=== PATIENT | male | born 1985 | race African-American/Black ===

== ENCOUNTER 2016-10-10 15:30 | Emergency (ER) | payer MEDICAID ==
[2016-10-10 16:04] VITALS: BP 125/74; PULSE 86; RESP 12; TEMP 97.9; O2SAT 95
[2016-10-10] MEDS ORDERED: IBUPROFEN 200 MG TAB PO ONE (16:34)
--- NOTE | 2016-10-10 16:36 | EDPHY ---
H & P Time Seen by Provider: 10/10/16 16:34 HPI/ROS: HPI: 31-year-old male presents to emergency department with chief concern left 4th toe pain and swelling.. 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 Has been doing this for 3 months. Denies trauma. Denies fever, chills, myalgias, other joint pain or swelling, nausea, vomiting, tingling. Past medical history includes schizoaffective disorder and chronic back pain. He is a patient at [facility]. ROS:10 point review of systems is negative other than as stated in HPI Social History: In [employer] Smoking Status: Former smoker Physical Exam: Vital signs stable, reviewed by me General: Awake, alert, calm, cooperative. No acute distress. Head: Normalocephalic. Atraumatic. EENT: PERRLA. EOMI. Neck: Supple, nontender. No midline tenderness, full ROM. Respiratory: Breathing unlabored. CV: Chest nontender, atraumatic. Distal pulses 2+. Brisk cap refill all extremities. GI: Deferred Neuro: Alert. Oriented x 3. Sensation intact all extremities. Skin: Skin warm, dry, intact. Mild swelling of the left 4th toe, mild warmth. Extremities: No discomfort to palpation of the left hip, knee, leg, ankle. Full ROM. Pain left foot at the 4th toe, proximal and distal phalanx. No pain at the 4th left MTPJ. No pain or swelling of the medial, lateral, posterior malleoli. Negative mid foot torsion. Negative calcaneal squeeze. Moves all toes. Constitutional: Initial Vital Signs Temperature (C) 36.6 C 10/10/16 16:02 Heart Rate 86 10/10/16 16:02 Respiratory Rate 12 10/10/16 16:02 Blood Pressure 125/74 H 10/10/16 16:02 O2 Sat (%) 95 10/10/16 16:02 O2 Delivery Mode Room Air Allergies/Adverse Reactions: No Known Allergies Allergy (Verified 08/06/15 06:27) Home Medications: Medication Instructions Recorded Abilify 10 mg (RX) 10 mg PO DAILY 08/10/14 Cephalexin [Keflex (*)] 500 mg PO TID #21 cap 02/16/17 Medical Decision Making ED Course/Re-evaluation: Nontoxic afebrile 31-year-old male with no systemic symptoms presents with several days of left toe pain and mild swelling. Recalls no trauma but has been wearing steel-toed boots for work. X-rays negative for evidence of fracture dislocation. There is mild swelling and warmth. I will place him on Keflex prophylactically in the event this is an early cellulitis. Have counseled regarding follow-up [facility]. He verbalizes understanding and agrees to do so. Differential Diagnosis: Differential diagnosis includes but is not limited to musculoskeletal strain, cellulitis, gout Departure - Departure Disposition: Home, Routine, Self-Care Clinical Impression: Toe pain, left Condition: Good Instructions: Musculoskeletal Pain (ED) Additional Instructions: Plan: You may use 600 mg of ibuprofen every 6 hours for fever, inflammation, or pain. Always take ibuprofen with food and stay well hydrated while taking. Do not exceed the maximum allowable dose in a 24 hour period which is 2400 mg. ice every 1-2 hours for 20 minutes for the the next 2-3 days Elevate foot while at rest Wear different boot while up and about at work. Take antibiotic as prescribed for 1 week, take with food Take an [id number] probiotic and/or eat yogurt while taking this antibiotic. Follow up Friday or Friday at [facility] for recheck without fail--When you call to schedule appointment, please let the office know you are an "ER follow up" appointment" Return to emergency department for worsening symptoms including fever, vomiting , worsening swelling or pain. Referrals: NONE *PRIMARY CARE P,. [Primary Care Provider] - As per Instructions [facility] [Outside] - As per Instructions Prescriptions: Cephalexin [Keflex (*)] 500 mg PO TID #21 cap
== END 2016-10-10 16:56 | disposition home or self-care (01) ==
DX: M79.675 Pain in left toe(s) (principal); Z87.891 Personal history of nicotine dependence

== ENCOUNTER 2017-01-27 19:33 | Emergency (ER) | payer MEDICAID ==
[2017-01-27 19:43] VITALS: RESP 16; TEMP 99; O2SAT 96
[2017-01-27] MEDS ORDERED: AMOXICILLIN/CLAVULANATE POT 875/125 MG TAB PO ONE (20:39)
[2017-01-27] MEDS ORDERED: DEXAMETHASONE 4 MG TAB PO ONE (20:39)
[2017-01-27] MEDS ORDERED: NS 1,000 ML IV ONE (20:43)
[2017-01-27] MEDS ORDERED: DEXAMETHASONE 10 MG/ML VIAL IVP ONE (20:43)
--- NOTE | 2017-01-27 20:43 | EDPHY ---
H & P Stated Complaint: pt c/o his uvula hanging down too far x 2 days Source: Patient Exam Limitations: No limitations - Medical/Surgical History Hx Asthma: No Hx Chronic Respiratory Disease: No Hx Diabetes: No Hx Cardiac Disease: No Hx Renal Disease: No Hx Cirrhosis: No Hx Alcoholism: No Hx HIV/AIDS: No Hx Splenectomy or Spleen Trauma: No Other PMH: PMH:"auditory hallucinations" + paranoid schiz. PSH: none. chronic back pain - Social History Smoking Status: Current every day smoker HPI/ROS: CHIEF COMPLAINT: "my uvula is too long" HISTORY OF PRESENT ILLNESS: Patient complains of 2 days history of "my uvula is too long." Mild to moderately painful. Feels that he has difficulty talking swallowing due to the swelling. No fever or chills. No chest pain or shortness of breath. No drooling. No swelling of the lips or tongue. No new medications. Does have a sore throat. No other associated complaints or modifying factors. REVIEW OF SYSTEMS: Ten systems reviewed and are negative unless otherwise noted in the HPI PERTINENT MEDICAL HISTORY: Denies any medical history or medications EXAMINATION General Appearance: Alert, no distress Head: normocephalic, atraumatic Eyes: Pupils equal and round, no conjunctival pallor or injection ENT, Mouth: Mucous membranes moist. Uvula is erythematous and elongated. Uvula is midline. There is no posterior edema. There is erythema and mild exudate. No abnormality of the floor of the mouth. No swelling of the lips or tongue. Airway is widely patent. No evidence of peritonsillar abscess Neck: Normal inspection, supple, non-tender. Anterior cervical lymphadenopathy. Respiratory: Lungs are clear to auscultation. No wheezing, rhonchi or crackles. Cardiovascular: Tachycardic rate. Regular rhythm. Neurological: GCS 15. A&O, nonfocal, normal gait Skin: Warm and dry, no rash no petechiae or purpura. Extremities: Nontender, no pedal edema Psychiatric: Mood and affect normal DIFFERENTIAL DIAGNOSES: Including but not limited to uvulitis, acute pharyngitis, strep pharyngitis, viral pharyngitis, Aldo's angina, peritonsillar abscess MDM: 8:40 p.m. Acute uvulitis. The airway is widely patent. No abnormality of the floor of the mouth. Vital signs reveal tachycardia but otherwise stable. We will provide IV fluid resuscitation, IV Decadron and p.o. Augmentin and monitor. 9:30 p.m. Patient received 1 L IV fluid resuscitation. Vital signs returned to within normal limits. I suspect that part of his tachycardia was due to the anxiety felt about the length of the uvula. He was awake, alert and in no acute distress at time of discharge. He was conversing appropriately without drooling. He was treated here with IV Decadron and a p.o. dose of Augmentin. We discharged him home with continuation of Augmentin. I recommended ibuprofen or Aleve for the next 3-5 days. Return here for any worsening of the swelling, difficulty swallowing, drooling, difficulty breathing. He discharged home stable condition. SUPERVISION: This patient was independently evaluated without direct examination by the attending physician. Case was discussed with attending physician. (Silviano Metzger) Constitutional: Initial Vital Signs Temperature (C) 99.0 F 01/27/17 19:41 Heart Rate 126 H 01/27/17 19:41 Respiratory Rate 16 01/27/17 19:41 Blood Pressure 136/95 H 01/27/17 19:41 O2 Sat (%) 96 01/27/17 19:41 O2 Delivery Mode Room Air Allergies/Adverse Reactions: No Known Allergies Allergy (Verified 01/27/17 19:44) Home Medications: Medication Instructions Recorded Amoxicillin/Clavulanate Pot 875 mg PO BID #20 tab 01/27/17 [Augmentin 875 MG TAB (*)] Medical Decision Making ED Course/Re-evaluation: I did not see this patient while he was in the emergency department. However his care was discussed with the PA while the patient was in the department. I agree with treatment plan and management (Deven Lynn) - Data Points Medications Given: Discontinued Medications Amoxicillin/Clavulanate Potassium (Augmentin 875mg) 875 mg PO EDNOW ONE PRN Reason: Protocol Stop: 01/27/17 20:40 Last Admin: 01/27/17 20:58 Dose: 875 mg Dexamethasone (Decadron Injection) 10 mg IVP EDNOW ONE Stop: 01/27/17 20:44 Last Admin: 01/27/17 20:59 Dose: 10 mg Sodium Chloride (Ns) 1,000 mls @ 0 mls/hr IV ONCE ONE PRN Reason: Wide Open Stop: 01/27/17 20:44 Last Admin: 01/27/17 20:30 Dose: 1,000 mls Departure - Departure Disposition: Home, Routine, Self-Care Clinical Impression: Uvulitis Acute pharyngitis Qualifiers: Pharyngitis/tonsillitis etiology: unspecified etiology Qualified Code(s): J02.9 - Acute pharyngitis, unspecified Condition: Good Instructions: Pharyngitis (ED), Uvulitis (ED) Additional Instructions: 1. Increase fluid intake 2. Advil/ibuprofen 800 mg every 8 hours for 5 days then. 3. Augmentin twice daily for 7 days and stop next 4. Follow up with Ear Nose and Throat physician 5. Return to the emergency department for difficulty swallowing, excessive drooling, difficulty breathing Referrals: NONE *PRIMARY CARE P,. [Primary Care Provider] - As per Instructions Lasha Hammer MD [Medical Doctor] - As per Instructions Prescriptions: Amoxicillin/Clavulanate Pot [Augmentin 875 MG TAB (*)] 875 mg PO BID #20 tab
[2017-01-27 21:27] VITALS: BP 132/77; PULSE 88
== END 2017-01-27 21:26 | disposition home or self-care (01) ==
DX: K12.2 Cellulitis and abscess of mouth (principal); F17.200 Nicotine dependence, unspecified, uncomplicated
CPT/HCPCS: 96374

== ENCOUNTER 2017-02-01 03:45 | Emergency (ER) | payer MEDICAID ==
[2017-02-01] MEDS ORDERED: MIDAZOLAM 10 MG/2 ML VIAL IM ONE (04:15)
[2017-02-01] MEDS ORDERED: OLANZapine 10 MG/2 ML VIAL IM ONE (04:16)
[2017-02-01 06:00] LABS: % IMMATURE GRANULYOCYTES 0.2 % (0.0-1.1); ABSOLUTE IMMATURE GRANULOCYTES 0.01 10^3/uL (0.00-0.10); ADD DIFF? NO; ADD MORPH? NO; ADD SCAN? NO; ATYPICAL LYMPHOCYTE FLAG 30 (0-99); FRAGMENT RBC FLAG 0 (0-99); HEMATOCRIT 45.4 % (40.0-51.0); HEMOGLOBIN 14.5 g/dL (13.7-17.5); LEFT SHIFT FLG 0 (0-99); LIPEMIA HEMOLYSIS FLAG 80 (0-99); MEAN CELL HEMOGLOBIN 24.3 pg (27.9-34.1); MEAN CELL HEMOGLOBIN CONCENTR. 31.9 g/dL (32.4-36.7); MEAN CELL VOLUME 76.2 fL (81.5-99.8); MEAN PLATELET VOLUME 9.9 fL (8.7-11.7); PLATELET CLUMPS FLAG 0 (0-99); PLATELET COUNT 168 10^3/uL (150-400); RED BLOOD CELL COUNT 5.96 10^6/uL (4.40-6.38); RED CELL DISTRIBUTION WIDTH 12.9 % (11.5-15.2)
--- NOTE | 2017-02-01 06:06 | EDPHY ---
H & P Source: Patient, EMS, Old records - Medical/Surgical History Hx Asthma: No Hx Chronic Respiratory Disease: No Hx Diabetes: No Hx Cardiac Disease: No Hx Renal Disease: No Hx Cirrhosis: No Hx Alcoholism: No Hx HIV/AIDS: No Hx Splenectomy or Spleen Trauma: No Other PMH: PMH:"auditory hallucinations" + paranoid schiz. PSH: none. chronic back pain - Social History Smoking Status: Current every day smoker HPI/ROS: HPI The patient presents brought in by paramedics on M1 hold placed by police [place]. The patient called the police because he thought his girlfriend was killed by a poison that fell onto her shoe. He says he has been M staying in his apartment but people have been following him. REVIEW OF SYSTEMS Constitutional: No fever, no chills. Eyes: No discharge. ENT: No sore throat. Cardiovascular: No chest pain, no palpitations. Respiratory: No cough, no shortness of breath. Gastrointestinal: No abdominal pain, no vomiting. Genitourinary: No hematuria. Musculoskeletal: No back pain. Skin: No rashes. Neurological: No headache. PMHx: Paranoid schizophrenia, recently seen in the ER for enlarged uvula Soc Hx: Denies drug use, states he lives in an apartment PHYSICAL General Appearance: Alert, no distress Eyes: Pupils equal and round no pallor or injection ENT, Mouth: Mucous membranes moist Respiratory: There are no retractions, lungs are clear to auscultation Cardiovascular: Regular rate and rhythm Gastrointestinal: Abdomen is soft and non-tender, no masses, bowel sounds normal Neurological: A&O, moves all extremities Skin: Warm and dry, no rashes Musculoskeletal: Neck is supple non tender Extremities: symmetrical, full range of motion Psychiatric: The patient is agitated and aggressive, he is pacing, he has poor eye contact, he speaks in a loud voice (Catalinauzzi,Cesia) Constitutional: Initial Vital Signs Heart Rate 98 02/01/17 04:00 Respiratory Rate 14 02/01/17 04:00 O2 Sat (%) 90 L 02/01/17 04:00 O2 Delivery Mode Room Air Allergies/Adverse Reactions: No Known Allergies Allergy (Verified 01/27/17 19:44) Home Medications: Medication Instructions Recorded NK [No Known Home Meds] 02/01/17 Medical Decision Making ED Course/Re-evaluation: I assumed care of the patient at 7 o'clock in the morning pending psychiatric disposition. (Jovanny De Los Santos) Differential Diagnosis: This is a 31-year-old male with past history of paranoid schizophrenia who is presenting with psychosis. He is agitated with fixed delusions. He is on the M1 hold. Differential diagnosis includes paranoid schizophrenia with psychosis, polysubstance abuse, alcohol intoxication. In the emergency room, the patient refused lab testing, he became agitated and upset. We medicated him with Versed 5 mg and Zyprexa 10 mg. After this he was calm and more cooperative. (Cesia Jefferson) Other Provider: Care the patient was assumed from Dr. De Los Santos at 2:30 p.m. with psychiatric evaluation in progress. [facility] evaluation complete at 1735, recommends discharge Dr. Hood. Currently at psychiatric baseline, does not meet criteria for hospitalization now (Luke Taylor) - Data Points Laboratory Results: Laboratory Results 02/01/17 05:50 02/01/17 05:50 02/01/17 02/01/17 11:30 05:50 Conjugated Bilirubin 0.3 mg/dL mg/dL (0.0-0.5) Unconjugated Bilirubin 1.8 mg/dL H mg/dL (0.0-1.1) Urine Opiates Screen NEGATIVE (NEGATIVE) Urine Barbiturates NEGATIVE (NEGATIVE) Ur Phencyclidine Scrn NEGATIVE (NEGATIVE) Ur Amphetamine Screen NON-NEGATIVE H (NEGATIVE) U Benzodiazepines Scrn NEGATIVE (NEGATIVE) Urine Cocaine Screen NEGATIVE (NEGATIVE) U Marijuana (THC) Screen NON-NEGATIVE H (NEGATIVE) Medications Given: Discontinued Medications Midazolam HCl (Versed) 5 mg IM EDNOW ONE Stop: 02/01/17 04:16 Last Admin: 02/01/17 04:34 Dose: 5 mg Olanzapine (Zyprexa Im Injection) 10 mg IM EDNOW ONE Stop: 02/01/17 04:17 Last Admin: 02/01/17 04:34 Dose: 10 mg Departure - Departure Disposition: Home, Routine, Self-Care Clinical Impression: Acute psychosis Schizophrenia Qualifiers: Schizophrenia type: paranoid schizophrenia Qualified Code(s): F20.0 - Paranoid schizophrenia Condition: Good Instructions: Schizophrenia (ED) Referrals: [facility],. [Clinic] - As per Instructions
[2017-02-01 06:11] LABS: ALANINE AMINOTRANSFERASE 52 IU/L (21-72); ALBUMIN 4.7 g/dL (3.5-5.0); ALKALINE PHOSPHATASE 63 IU/L (38-126); ANION GAP 12 mEq/L (8-16); ASPARTATE AMINOTRANSFERASE 34 IU/L (17-59); BILIRUBIN,TOTAL 2.1 mg/dL (0.1-1.4); CALCIUM 9.6 mg/dL (8.5-10.4); CARBON DIOXIDE 22 mEq/l (22-31); CHLORIDE 105 mEq/L (97-110); ETHANOL SERUM < 10 mg/dL (0-10); GLOMERULAR FILTRATION RATE > 60; GLUCOSE 104 mg/dL (70-100); POTASSIUM 3.9 mEq/L (3.5-5.2); SODIUM 139 mEq/L (134-144); TOTAL PROTEIN 7.8 g/dL (6.3-8.2)
[2017-02-01 06:48] LABS: BILIRUBIN-CONJUGATED 0.3 mg/dL (0.0-0.5); BILIRUBIN-UNCONJUGATED 1.8 mg/dL (0.0-1.1)
[2017-02-01 08:45] VITALS: RESP 16
[2017-02-01 15:59] VITALS: TEMP 97.2
[2017-02-01 17:53] VITALS: BP 120/75; PULSE 70; O2SAT 98
== END 2017-02-01 17:54 | disposition home or self-care (01) ==
LOC: EDUNIT#
DX: F29 Unspecified psychosis not due to a substance or known physiological condition (principal); F20.0 Paranoid schizophrenia; F17.200 Nicotine dependence, unspecified, uncomplicated
CPT/HCPCS: 80305; G0480

== ENCOUNTER 2017-02-05 17:01 | Emergency (ER) | payer MEDICAID ==
--- NOTE | 2017-02-05 17:12 | EDPHY ---
H & P - Medical/Surgical History Hx Asthma: No Hx Chronic Respiratory Disease: No Hx Diabetes: No Hx Cardiac Disease: No Hx Renal Disease: No Hx Cirrhosis: No Hx Alcoholism: No Hx HIV/AIDS: No Hx Splenectomy or Spleen Trauma: No Other PMH: PMH:"auditory hallucinations" + paranoid schiz. PSH: none. chronic back pain - Social History Smoking Status: Current every day smoker Time Seen by Provider: 02/05/17 17:04 HPI/ROS: CHIEF COMPLAINT: M1, "I'm a revolutionist and they're after me" HISTORY OF PRESENT ILLNESS: 31-year-old male history of paranoid schizophrenia arrives on M1 hold. Per the M1 report he has been calling the police repeatedly recently claiming that the an "anarchist revolutionists" are trying to kill him. He denies self-injury. Denies suicidal homicidal ideation. REVIEW OF SYSTEMS: A ten point review of systems was performed and is negative with the exception of the items mentioned in the HPI PAST MEDICAL & SURGICAL HISTORY: Paranoid schizophrenia SOCIAL HISTORY:denies alcohol or illicit drug use PHYSICAL EXAM (Prior to examination, patient consented to physical exam, hands were washed and my usual and customary physical exam procedures followed) 1) GENERAL: Well-developed, well-nourished, alert and oriented. Calm, cooperative 2) HEAD: Normocephalic, atraumatic 3) HEENT: Pupils equal, round, reactive to light bilaterally. 4) NECK: Full range of motion, no meningeal signs. 5) LUNGS: Clear auscultation bilaterally 6) HEART: Regular rate and rhythm, no murmur, no heave, no gallop. 7) ABDOMEN: No guarding, no rebound, no focal tenderness, 8) MUSCULOSKELETAL: No peripheral edema or discoloration. DIFFERENTIAL DIAGNOSIS: in no particular order including but not limited ambrocio , psychosis, schizophrenia (Otilia,Duke Marguerite) Constitutional: Initial Vital Signs Temperature (C) 36.6 C 02/05/17 18:16 Heart Rate 74 02/05/17 18:16 Respiratory Rate 16 02/05/17 18:16 Blood Pressure 134/76 H 02/05/17 18:16 O2 Sat (%) 100 02/05/17 18:16 O2 Delivery Mode Room Air Allergies/Adverse Reactions: No Known Allergies Allergy (Verified 01/27/17 19:44) Home Medications: Medication Instructions Recorded NK [No Known Home Meds] 02/01/17 Medical Decision Making ED Course/Re-evaluation: The patient was evaluated and managed by the physician's assistant distribution manager. My cosignature indicates that I reviewed the chart and I agree with the findings and plan of care as documented. I am the secondary supervising physician. ( Lorrie Muhammad) Patient re-evaluated with serial exams. He remains calm and cooperative. I was informed by the mental health histotechnologist that they will be seeking placement for him. 1:00 a.m.: Care turned over to Dr Jefferson. Mental health histotechnologist is currently seeking placement. (Duke Bingham) 7:00 a.m.- The patient has remained stable during my shift. He is awaiting placement. The case is signed out to Dr. De Los Santos. (Cesia Jefferson) Other Provider: I assumed care of the patient at 7 o'clock in the morning. Update at 9:00 a.m.: The patient has been accepted for inpatient psychiatric admission by Dr. Taylor at [facility] inpatient psychiatric unit. I have filled out the EMTALA transfer form. (Jovanny De Los Santos) - Data Points Laboratory Results: Laboratory Results 02/05/17 17:15 02/05/17 17:15 Departure - Departure Disposition: Other Psych, Not Carrier Clinical Impression: Acute psychosis Schizophrenia Qualifiers: Schizophrenia type: paranoid schizophrenia Qualified Code(s): F20.0 - Paranoid schizophrenia Condition: Fair Referrals: NONE *PRIMARY CARE P,. [Primary Care Provider] - As per Instructions
[2017-02-05 17:29] LABS: % IMMATURE GRANULYOCYTES 0.4 % (0.0-1.1); ABSOLUTE IMMATURE GRANULOCYTES 0.02 10^3/uL (0.00-0.10); ADD DIFF? NO; ADD MORPH? NO; ADD SCAN? NO; ATYPICAL LYMPHOCYTE FLAG 30 (0-99); FRAGMENT RBC FLAG 0 (0-99); HEMATOCRIT 43.4 % (40.0-51.0); HEMOGLOBIN 13.7 g/dL (13.7-17.5); LEFT SHIFT FLG 0 (0-99); LIPEMIA HEMOLYSIS FLAG 80 (0-99); MEAN CELL HEMOGLOBIN 24.6 pg (27.9-34.1); MEAN CELL HEMOGLOBIN CONCENTR. 31.6 g/dL (32.4-36.7); MEAN CELL VOLUME 77.9 fL (81.5-99.8); MEAN PLATELET VOLUME 11.3 fL (8.7-11.7); PLATELET CLUMPS FLAG 0 (0-99); PLATELET COUNT 202 10^3/uL (150-400); RED BLOOD CELL COUNT 5.57 10^6/uL (4.40-6.38)
[2017-02-05 17:52] LABS: ANION GAP 10 mEq/L (8-16); CALCIUM 9.6 mg/dL (8.5-10.4); CARBON DIOXIDE 26 mEq/l (22-31); CHLORIDE 102 mEq/L (97-110); ETHANOL SERUM < 10 mg/dL (0-10); GLOMERULAR FILTRATION RATE > 60; GLUCOSE 80 mg/dL (70-100); POTASSIUM 4.7 mEq/L (3.5-5.2); SALICYLATE < 1.0 mg/dL (2.0-20.0); SODIUM 138 mEq/L (134-144)
[2017-02-05 18:23] VITALS: RESP 16
[2017-02-06 09:35] VITALS: BP 107/56; PULSE 68; TEMP 97.9; O2SAT 97
== END 2017-02-06 09:39 ==
DX: F20.0 Paranoid schizophrenia (principal); F17.200 Nicotine dependence, unspecified, uncomplicated
CPT/HCPCS: 80305; G0480

== ENCOUNTER 2017-07-24 08:23 | Emergency (ER) | payer MEDICAID ==
[2017-07-24 08:28] VITALS: BP 117/82; PULSE 88; RESP 18; TEMP 97.5; O2SAT 98
--- NOTE | 2017-07-24 08:36 | EDPHY ---
H & P Stated Complaint: Wants to get tested for every STD including HIV Time Seen by Provider: 07/24/17 08:35 HPI/ROS: CHIEF COMPLAINT: Requesting STD check HISTORY OF PRESENT ILLNESS: The patient presents to the ED requesting a STD test. The patient is concerned given a history of unprotected intercourse over the past year. He denies any complaints of dysuria, discharge or general rash. The patient denies IV drug use. The patient is also interested in HIV testing. The patient does not have a primary care provider. The patient does have a history of schizophrenia. The patient denies any recent febrile illness or history of trauma. He denies any acute medical complaints of headache, abdominal pain, chest pain, fever, cough or congestion. REVIEW OF SYSTEMS: A comprehensive 10 point review of systems is otherwise negative aside from elements mentioned in the history of present illness. Source: Patient Exam Limitations: No limitations - Personal History Current Tetanus Diphtheria and Acellular Pertussis (TDAP): Yes Tetanus Vaccine Date: 2011 - Medical/Surgical History Hx Asthma: No Hx Chronic Respiratory Disease: No Hx Diabetes: No Hx Cardiac Disease: No Hx Renal Disease: No Hx Cirrhosis: No Hx Alcoholism: No Hx HIV/AIDS: No Hx Splenectomy or Spleen Trauma: No Other PMH: PMH:"auditory hallucinations" + paranoid schiz. PSH: none. chronic back pain - Social History Smoking Status: Current every day smoker - Physical Exam Exam: General Appearance: Alert, no distress Eyes: Pupils equal and round no pallor or injection ENT, Mouth: Mucous membranes moist Respiratory: There are no retractions, lungs are clear to auscultation Cardiovascular: Regular rate and rhythm Gastrointestinal: Abdomen is soft and nontender, no masses, bowel sounds normal Neurological: A&O, normal motor function, normal sensory exam, normal cranial nerves Skin: Warm and dry, no rashes Musculoskeletal: Neck is supple nontender Extremities: symmetrical, full range of motion Psychiatric: Patient is oriented X 3, there is no agitation Constitutional: Initial Vital Signs Temperature (C) 36.4 C 07/24/17 08:24 Heart Rate 88 07/24/17 08:24 Respiratory Rate 18 07/24/17 08:24 Blood Pressure 117/82 H 07/24/17 08:24 O2 Sat (%) 98 07/24/17 08:24 O2 Delivery Mode Room Air Allergies/Adverse Reactions: No Known Allergies Allergy (Verified 07/24/17 08:23) Home Medications: Medication Instructions Recorded NK [No Known Home Meds] 02/01/17 Medical Decision Making ED Course/Re-evaluation: The patient's urine has been sent for GC and chlamydia testing. In the absence of symptoms he will not be treated. The patient did consent to have HIV testing done in the emergency department. The patient will be discharged home and contact the emergency department for his results. [facility] also [facility] The patient's cell phone number is . Departure - Departure Disposition: Home, Routine, Self-Care Clinical Impression: Screening for STD (sexually transmitted disease) Condition: Good Instructions: Safe Sex (ED) Additional Instructions: 1. Please contact the emergency department at in 2 days to check the results of your urine and blood test. 2. Please schedule a follow-up appointment with [facility] to establish primary care. Referrals: [facility],. [Clinic] - As per Instructions
[2017-07-25 15:22] LABS: CHLAMYDIA AMPLIFICATION GENPRB NEGATIVE (NEGATIVE)
== END 2017-07-24 09:13 | disposition home or self-care (01) ==
DX: Z11.3 Encounter for screening for infections with a predominantly sexual mode of transmission (principal); F17.200 Nicotine dependence, unspecified, uncomplicated